=== PATIENT | male | born 1955 | race Caucasian/White ===

== ENCOUNTER 2018-07-25 22:38 | Emergency (ER) ==
[2018-07-25 23:25] VITALS: BP 121/84; TEMP 98.1; BMI 26.2
--- NOTE | 2018-07-26 00:10 | DI ---
EXAM: Single-view chest HISTORY: Cough COMPARISON: None. FINDINGS: The heart is normal in size. Atherosclerotic changes are seen involving the aortic arch.. There is mild elevation of the left hemidiaphragm with left basilar atelectasis and/or scarring. IMPRESSION: Mildly elevated left hemidiaphragm with left basilar atelectasis and/or scarring
[2018-07-26] MEDS ORDERED: TORADOL IM STA (00:22)
--- NOTE | 2018-07-26 00:23 | ED.PDOC ---
General ED Provider: Dr. SHARI ALTMAN Chief Complaint: Shoulder Pain/Injury Stated Complaint: Reports waking up 18 hours ago with Left upper chest and Neck pain that he describes as stabbing/burning. Time Seen by Physician: 23:20 Mode of Arrival: Walk-In Information Source: Patient, Family Exam Limitations: No limitations Primary Care Provider: ELIANA MAY Nursing and Triage Documentation Reviewed and Agree: Yes Does patient meet sepsis criteria?: No System Inflammatory Response Syndrome: Not Applicable Sepsis Protocol: For patient's 13 years and over: Temp is 96.8 and below OR 101 and greater Pulse >90 BPM Resp >20/minute Acutely Altered Mental Status Are patient's symptoms suggestive of a new infection, such as: -Pneumonia -Skin, Soft Tissue -Endocarditis -UTI -Bone, Joint Infection -Implantable Device -Acute Abdominal Infection -Wound Infection -Meningitis -Blood Stream Catheter Infection -Unknown Cardiovascular Complaint Exam - Chest Pain Complaint/Exam Onset: Gradual Duration: 18 hours ago Symptoms Are: Still present Timing: Constant Length of Chest Pain Episodes: 18 hours Initial Severity: Moderate Current Severity: Severe Location: Reports: Left anterior Pain Radiates: Reports: Left shoulder Character: Reports: Dull, Burning, Stabbing Aggravating: Reports: Movement, Deep breaths Alleviating: Reports: None Associated Signs and Symptoms: Denies: Diaphoresis, Nausea, Vomiting, Fever, Palpitations, Cough, Hemoptysis, Back pain, Abdominal pain, Dizziness, Short of air, Calf pain, Calf swelling Related History: Denies: Similar episode Related Surgical History: Reports: None History of Healthcare-Acquired Pneumonia: Reports: No AMI/ACS Risk Factors: Reports: None TAD Risk Factors: Reports: Hypertension, Smoking Pulmonary Embolism Risk Factors: Reports: Smoking Prior Care for this Complaint: No Recent Stress Test: No Recent Echo/LV Function: No JVD Present: No Subcutaneous Emphysema Present: No Diminshed Breath Sounds: Yes Reproducible Chest Wall Pain: Yes (Left upper chest ) Bilateral Pulses Present: No Unequal Pulses Noted: No If Risk Factors for AMI/ACS Consider: EKG, Cardiac Enzymes Differential Diagnoses: Acute [place], Chest Wall Pain Quality Indicators For Acute [place] or Cardiac Chest Pain: EKG in 10min. Review of Systems - Review Of Systems Constitutional: Reports: No symptoms Eyes: Reports: No symptoms Ears, Nose, Mouth, Throat: Reports: No symptoms Respiratory: Reports: No symptoms Cardiac: Reports: Chest pain GI: Reports: No symptoms : Reports: No symptoms Musculoskeletal: Reports: Other (Left chest wall pain ) Skin: Reports: No symptoms Neurological: Reports: Anxiety Endocrine: Reports: No symptoms Hematologic/Lymphatic: Reports: No symptoms All Other Systems: Reviewed and Negative Past Medical History - Past Medical History Previously Healthy: Yes Endocrine: Reports: None Cardiovascular: Reports: CAD, Hypertension Respiratory: Reports: None Hematological: Reports: None Gastrointestinal: Reports: GERD Genitourinary: Reports: None Neuro/Psych: Reports: None Musculoskeletal: Reports: Arthritis, Back Pain Cancer: Reports: None - Surgical History General Surgical History: Reports: Stent (LAD 2000 ), Orthopedic, Back Surgery - Family History Family History: Reports: Unknown - Social History Smoking Status: Current every day smoker, Light tobacco smoker Hx Substance Use: No Alcohol Screening: None - Immunizations Tetanus Shot up to Date: Yes Physical Exam - Physical Exam Appearance: Ill-appearing Ill-appearing: Moderate Pain Distress: Severe Neck: Supple Respiratory: Airway patent, Breath sounds clear, Breath sounds equal, Respirations nonlabored Cardiovascular: RRR, Pulses normal, No rub, No murmur GI/: Soft, Nontender, No masses, Bowel sounds normal, No Organomegaly Musculoskeletal: Normal strength, ROM intact, No edema, No calf tenderness Skin: Warm, Dry, Normal color Neurological: Sensation intact, Motor intact, Reflexes intact, Cranial nerves intact, Alert, Oriented Psychiatric: Anxious Interpretation - Radiology Interpretation Radiology Interpretation By: Radiologist Radiology Results: Positive (mildly elevated left hemidiaphragm with left basilar atelectasis and or scaring.) Exam Interpreted: Portable CXR - 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 Rate: Normal Rhythm: Sinus - EKG Interpretation Time of EKG #1: 23:51 Rate: Normal Rhythm: Sinus Ectopy: None [place]: NL ST Segment: Normal Interpretation: Normal EKG Critical Care Note - Critical Care Note Total Time (mins): 0 Course - Course Hematology/Chemistry: 07/25/18 23:53 07/25/18 23:53 Orders, Labs, Meds: Lab Review 07/25/18 07/25/18 23:53 23:53 WBC 11.15 H RBC 5.31 Hgb 16.4 Hct 46.8 MCV 88.1 MCH 30.9 MCHC 35.0 RDW Coeff of Jeanine 12.9 Plt Count 206 Immature Gran % (Auto) 0.3 Neut % (Auto) 58.7 Lymph % (Auto) 29.9 [place] % (Auto) 7.9 Eos % (Auto) 2.4 Baso % (Auto) 0.8 Immature Gran # (Auto) 0.0 Neut # (Auto) 6.6 Lymph # (Auto) 3.3 [place] # (Auto) 0.9 Eos # (Auto) 0.3 Baso # (Auto) 0.1 Sodium 136.4 L Potassium 3.70 Chloride 98.3 Carbon Dioxide 31.9 H Anion Gap 9.90 BUN 13.4 Creatinine 0.97 Estimated GFR (MDRD) 78.00 BUN/Creatinine Ratio 13.81 Glucose 96.8 Calcium 9.20 Total Bilirubin 0.50 AST 35.5 ALT 26.9 Alkaline Phosphatase 55.5 L Total Creatine Kinase 90.1 Troponin I < 0.012 Total Protein 7.48 Albumin 4.23 Globulin 3.25 Albumin/Globulin Ratio 1.30 Orders Category Date Time Status EKG-(ED ONLY) Stat CARDIO 07/25/18 23:38 Ordered CBC W/ AUTO DIFF Stat LAB 07/25/18 23:53 Completed COMPREHENSIVE METABOLIC PANEL Stat LAB 07/25/18 23:53 Received CREATINE KINASE Stat LAB 07/25/18 23:53 Received TROPONIN I Stat LAB 07/25/18 23:53 Received Ketorolac Tromethamine [Toradol] MEDS 07/26/18 00:22 Stat 60 mg IM ONCE STA CHEST, 1V AP ONLY Stat RADS 07/25/18 23:38 Completed Medications Discontinued Medications Generic Name Dose Route Start Last Admin Trade Name Freq PRN Reason Stop Dose Admin Ketorolac Tromethamine 60 mg 07/26/18 00:22 07/26/18 00:32 Toradol IM 07/26/18 00:23 60 mg ONCE STA Administration Vital Signs: Temp Pulse Resp BP Pulse Ox 07/25/18 23:09 98.1 F 68 20 121/84 94 L NILS Risk Score Age >/= 65: No >/= 3 CAD Risk Factors: No Known CAD (Stenosis >/= 50%): No ASA Use in Past 7 Days: Yes Severe Angina (>/= 2 episodes in 24 hours): No EKG ST Changes >/= 0.5mm: No Postive Cardiac Marker: No NILS Total Score: 1 NILS Risk Score: Risk Score Odds of by 30D 0 0.1 (0.1-0.2) 1 0.3 (0.2-0.3) 2 0.4 (0.3-0.5) 3 0.7 (0.6-0.9) 4 1.2 (1.0-1.5) 5 2.2 (1.9-2.6) 6 3.0 (2.5-3.6) 7 4.8 (3.8-6.1) Departure - Departure Time of Disposition: 02:30 Disposition: HOME SELF-CARE Discharge Problem: Shoulder pain, Chest wall pain Instructions: Chest Wall Pain (ED) Condition: Stable Pt referred to PMD for follow-up: Yes IPMP verified?: No Additional Instructions: Follow up with your PCP on Friday- Tom Continue home medications as prescribed Take pain medications as needed Prescriptions: Ketorolac Tromethamine [Toradol] 10 mg PO Q6H PRN #20 tablet PRN Reason: chest wall pain Tramadol HCl [Ultram] 50 mg PO Q6H PRN #14 tablet PRN Reason: Severe Pain Allergies/Adverse Reactions: Allergies No Known Allergies Allergy (Unverified 07/25/18 23:26) Home Medications: Ambulatory Orders Aspirin [Aspirin EC] 81 mg PO DAILY 07/25/18 Atenolol 0 mg PO DAILY 07/25/18 Cholecalciferol (Vitamin D3) [Vitamin D] 0 unit PO DAILY 07/25/18 Citalopram Hydrobromide [Celexa] 0 mg PO DAILY 07/25/18 Clonazepam 0 mg PO DAILY 07/25/18 Lisinopril [Zestril] 0 mg PO DAILY 07/25/18 Potassium Chloride 0 meq PO DAILY 07/25/18 Ranitidine HCl [Zantac] 0 mg PO DAILY 07/25/18 Ketorolac Tromethamine [Toradol] 10 mg PO Q6H PRN #20 tablet 07/26/18 Tramadol HCl [Ultram] 50 mg PO Q6H PRN #14 tablet 07/26/18 Disposition Discussed With: Patient, Family
== END 2018-07-26 02:00 | disposition home or self-care (01) ==
LOC: ED 23:08
DX: R07.89 Other chest pain (principal); M25.512 Pain in left shoulder; M54.2 Cervicalgia; I10 Essential (primary) hypertension; F17.210 Nicotine dependence, cigarettes, uncomplicated; I25.10 Atherosclerotic heart disease of native coronary artery without angina pectoris; Z79.899 Other long term (current) drug therapy
CPT/HCPCS: 36415; 80053; 82550; 84484; 85025; 93005; 93010; 96372; 99283